=== PATIENT | female | born 1995 | race Two or more races ===

== ENCOUNTER 2016-11-02 21:52 | Emergency (ER) | payer MEDICAID ==
--- NOTE | 2016-11-02 22:56 | ED Physician Chart ---
Chief Complaint/HPI - Patient Information Date Seen:: 11/02/16 Time Seen:: 22:51 Chief Complaint:: rectal discomfort History of Present Illness:: pt has had discomfort at anus x few days. she has not noted any lump there or and blood dc. no fever. no abd p. no back pain. no dysuria, no vag dc. no change in lmp. pt had a experience where she had anal intercourse w her partner of sev months recently. she has been checked for std's once not too long ago and all was ok. also notes she has been to [facility] and this required a lot of driving and presure on her bottom...also she ate lots of hot foods there and could be cause of anal irritation. no constipation nor diarrhea. Allergies:: Allergies Allergy/AdvReac Type Severity Reaction Status Date / Time No Known Allergies Allergy Verified 08/07/16 17:12 Historian:: Patient Review of Systems - Review of Systems General/Constitutional: No fever, No chills, No weight loss, No weakness, No diaphoresis, No edema, No loss of appetite Skin: No skin lesions, No rash, No bruising Head: No headache, No light-headedness Eyes: No loss of vision, No pain, No diplopia ENT: No earache, No nasal drainage, No sore throat, No tinnitus Neck: No neck pain, No swelling, No thyromegaly, No stiffness, No mass noted Cardio Vascular: No chest pain, No palpitations, No PND, No orthopnea, No edema Pulmonary: No SOB, No cough, No sputum, No wheezing GI: No nausea, No vomiting, No diarrhea, No pain, No melena, No hematochezia, No constipation, No hematemesis G/U: No dysuria, No frequency, No hematuria Spray Operator: No vaginal discharge, No abnormal vaginal bleed, No contraction Musculoskeletal: No bone or joint pain, No back pain, No muscle pain Endocrine: No polyuria, No polydipsia Psychiatric: No prior psych history, No depression, No anxiety, No suicidal ideation Hematopoietic: No bruising, No lymphadenopathy Allergic/Immuno: No urticaria, No angioedema Neurological: No syncope, No focal symptoms, No weakness, No paresthesia, No headache, No seizure, No dizziness, No confusion, No vertigo Past Medical History - Past Medical History Past Medical History: No significant medical hx Social History: Non Smoker Medication: Reviewed Family Medical History - Family Member Mother History Unknown: Yes Living Status: Still Living Hx Family Hypertension: Yes Physical Exam - Physical Examination General/Constitutional: Awake, Well-developed, well-nourished, Alert, No distress, GCS 15, Non-toxic appearing, Ambulatory Other Gen/Cons comments:: mod obese. nad. alert, nontoxic Head: Atraumatic Eyes: Lids, conjuctiva normal, PERRL, EOMI Skin: Nl inspection, No rash, No skin lesions, No ecchymosis, Well hydrated, No lymphadenopathy ENMT: External ears, nose nl, Nasal exam nl, Lips, teeth, gums nl Neck: Nontender, Full ROM w/o pain, No JVD, No nuchal rigidity, No bruit, No mass, No stridor Respiratory: Nl effort/Exclusion, Clear to Auscultation, No Wheeze/Rhonchi/Rales Cardio Vascular: RRR, No murmur, gallop, rubs, NL S1 S2 GI: No tenderness/rebounding/guarding, No organomegaly, No hernia, Normal BS's, Nondistended, No mass/bruits, No McBurney tenderness Other GI comments:: rectal exam w rn present appears nrml. no ext hemorrhoids. no anal fissure, no blood. : No CVA tenderness Extremities: No tenderness or effusion, Full ROM, normal strength in all extremities, No edema, Normal digits & nails Neuro/Psych: Alert/oriented, DTR's symmetric, Normal sensory exam, Normal motor strength, Judgement/insight normal, Mood normal, Normal gait, No focal deficits Misc: normal gait, Normal back, No paraspinal tenderness Labs/Radiology/EKG Results - Lab Results Results: Laboratory Tests 11/02/16 11/02/16 23:05 23:05 Urine Source CLEAN C Urine Color YELLOW Urine Clarity HAZY Urine pH 5.5 Ur Specific [place] [id number] H Urine Protein NEGATIVE Urine Glucose (UA) NEGATIVE Urine Ketones TRACE Urine Blood TRACE Urine Nitrate NEGATIVE Urine Bilirubin SMALL H Urine Ictotest NEGATIVE Urine Urobilinogen 0.2 Ur Leukocyte Esterase NEGATIVE Urine RBC 0-2 Urine WBC 0-2 Ur Epithelial Cells MANY Urine Bacteria MODERATE Urine Test NEGATIVE doubt this represents a uti based on hx. will do cx. pt to fu w pmd this week for results. ED Septic Shock - . Is Septic Shock (SBP<90, OR Lactate>4 mmol\L) present?: No Reassessment (Disposition) - Reassessment Reassessment:: rectal irritation. urine sent for r/o of std's. pt strongly advised to fu w pmd fr further advise...and to not have sex w/o a condom until both she and her partner can be verified std dz free Reassessment Condition:: Improved - Diagnosis Diagnosis:: 1 rectal discomfort of uncertain etiology 2 anxiety - Aftercare/Follow up Instructions Aftercare/Follow-Up Instructions:: Counseled pt & family regarding lab results/ diagnosis & need follow up - Patient Disposition Discharge/Transfer:: Home Condition at Disposition:: Improved
[2016-11-02 23:16] LABS: URINE BILIRUBIN SMALL (NEGATIVE); URINE COLOR YELLOW; URINE GLUCOSE (UA) NEGATIVE (NEGATIVE)
[2016-11-02 23:28] LABS: URINE BLOOD TRACE (NEGATIVE); URINE KETONE TRACE mg/dL (NEGATIVE); URINE PH 5.5; URINE PROTEIN NEGATIVE (NEGATIVE)
[2016-11-02 23:29] LABS: URINE RBC 0-2 /hpf (0-5); URINE UROBILINOGEN 0.2 E.U./dL (0.2 - 1.0)
[2016-11-02 23:30] LABS: URINE BACTERIA MODERATE /hpf (NONE SEEN); URINE EPITHELIAL CELLS MANY /lpf (FEW); URINE WBC 0-2 /hpf (0-5)
== END 2016-11-02 23:55 | disposition home or self-care (01) ==
LOC: ER 21:52
DX: K62.89 Other specified diseases of anus and rectum (principal); F41.9 Anxiety disorder, unspecified
CPT/HCPCS: 81001-TC; 81025-TC; 87491-90; Z7502